=== PATIENT | female | born 1980 | race Hispanic/Latino ===

== ENCOUNTER → 2024-12-18 | Outpatient (CLI) | payer BC ==
--- NOTE | 2024-12-18 11:02 | EKG ---
[facility] Test Date: 2024-12-18 Test Time: 10:34:34 Pat Name: JAMES MONTIEL Department: LAB Patient ID: [id number] Room: Gender: F Machine Packer: [id number] [phone] 1980 Requested By: LORY CABRAL Order Number: [id number] Reading MD: Hector Tariq Measurements Intervals [place] Rate: 57 P: 65 MO: 133 QRS: 198 QRSD: 81 T: 33 QT: 394 QTc: 384 Interpretive Statements Sinus rhythm Right axis deviation No previous ECG available for comparison Electronically Signed On 12-18-2024 13:41:41 CDT by Hector Tariq Please click the below link to view image of tracing.
== END | disposition home or self-care (01) ==
LOC: LAB 10:09
PROVIDERS: ATTEND Internal Medicine Nephrology
DX: R06.02 Shortness of breath (principal)
CPT/HCPCS: 93005